=== PATIENT | male | born 1975 | race Caucasian/White ===

== ENCOUNTER 2019-09-17 01:11 | Day surgery (SDC) | payer OTHER, SELFPAY ==
[2019-07-20 14:09] VITALS: BMI 27.0
[2019-09-17] VITALS (9 sets, daily range): BP systolic 110–149; BP diastolic 59–92; PULSE 70–93; RESP 10–24; TEMP 36.2–36.7; O2SAT 93–100; BMI 28.1
--- NOTE | 2019-09-17 08:06 | WPDANESEPPF ---
Anes - Initial Pre Proc Eval Procedure: Operation Date: 09/17/19 10:00 Proposed Procedures p Bilateral Frontal Sinusotomy, Bilateral Ethmoidectomy, Bilateral Sphenoidotomy, Bilateral Maxillary Antrostomy, Bilateral Turbinate Reduction, - Keshav Kerr MD s Septoplasty - Keshav Kerr MD Date/Time: 09/17/19 08:06 Surgeon: Keshav Kerr MD Pre Op Diagnosis: Chronic sinusitis, deviated septum Patient Data Age: 43 Gender: M Height: 1.85 m Weight: 92.99 kg Allergies Allergy/AdvReac Type Severity Reaction Status Date / Time Penicillins Allergy Mild RASH/ITCHING Verified 09/17/19 08:28 CHILD Home Medications Medication Instructions Recorded Confirmed Type loratadine [Claritin] 10 mg PO DAILY PRN 07/20/19 09/17/19 History multivitamin 1 tablet PO DAILY 07/20/19 09/17/19 History Patient hx anesthesia problems: none Family hx anesthesia problems: none Anes - Eval Final PreProcedure Day of Procedure 09/17/19 08:06 Patient weight: overweight Heart: regular rate and rhythm Lungs: clear to auscultation and normal air movement Airway: Mallampati scale class II Neurological: alert and oriented Last oral intake: >/= 8 hours ASA classification: II Emergent: no Anesthetic plan: proceed Anesthesia type and monitoring: general ETT Informed Consent: The patient's anesthetic plan and its attendant risks and benefits were discussed with the patient/family/POA. Questions were solicited and answers provided to the satisfaction of the patient/family/POA.
[2019-09-17] MEDS: LACTATED RINGERS 1,000 ML 30 ML IV CONT ×3 (08:45→13:33)
[2019-09-17] MEDS: OXYMETAZOLINE HCL 0.05% NAS 15 ML BTL (*BKC) 1 SPRAY NASAL (08:59)
--- NOTE | 2019-09-17 09:00 | PM.IMHP ---
H&P: HPI History of Present Illness Chief complaint: Chronic sinusitis, deviated septum Narrative: Olegario Hernandez is a 43 year old male with chronic sinusitis and polyps Review of Systems Review of Systems: All systems reviewed & are unremarkable except as noted in HPI and below Meds Home Medications and Allergies Home Medications Medication Instructions Recorded Confirmed Type loratadine [Claritin] 10 mg PO DAILY PRN 07/20/19 09/17/19 History multivitamin 1 tablet PO DAILY 07/20/19 09/17/19 History Allergies Allergy/AdvReac Type Severity Reaction Status Date / Time Penicillins Allergy Mild RASH/ITCHING Verified 09/17/19 08:28 CHILD Vital Signs Vital Signs - 24 hr 09/17/19 08:45 Temperature 36.7 C Pulse Rate 73 Respiratory Rate 16 Blood Pressure 142/82 H Pulse Oximetry 100 Exam Narrative: Exam Narrative: Normal except for bilateral polyposis and disease throughout all of the paranasal sinuses Assessment and Plan Assessment and plan (1) Chronic pansinusitis: Code(s): J32.4 - Chronic pansinusitis Status: Acute Assessment and Plan: Olegario has chronic pansinusitis and polyposis and is here for comprehensive endoscopic sinus surgery, possible septoplasty/turbinoplasty. Refer to outpatient H&P for full details.
[2019-09-17] MEDS: LIDO 1%/EPINEPHRINE 1:100,000 20 ML VIAL 10 ML INFILTRATE (09:15)
--- NOTE | 2019-09-17 11:53 | PM.PROC ---
Procedure Note - Detailed Date of procedure: 09/17/19 Pre-op diagnosis: Chronic sinusitis, deviated septum Post-op diagnosis: same Procedure performed: Bilateral frontal sinusotomy, maxillary antrostomy, total ethmoidectomy, sphenoidotomy. Septoplasty, bilateral inferior turbinoplasty. Lavage of bilateral maxillary and sphenoid sinuses. Image guided surgery Description of procedure: On the date of procedure the patient was met in the preoperative area and risk and benefits of the procedure reviewed with the patient as documented in the H&P and they elected to proceed with surgery. Patient was brought back to the operating room by the anesthesia team and underwent general endotracheal anesthesia. Once an adequate plane of anesthesia was obtained a timeout was performed to assure the patient identification the patient here to be performed were correct. They were.The patient was then prepped and draped in the normal fashion for endoscopic sinus surgery. The diffusion image guidance system was calibrated and used for the entire case. Afrin-soaked pledgets were placed in the nasal cavities bilaterally. The entire case was performed under endoscopic visualization. Nasal endoscopy was performed at the beginning of the case. 1% lidocaine with 1:100,000 epinephrine was then injected into the root of the middle turbinate and lateral nasal wall. Attention was first directed towards the left side. The septum was deviated with a sharp spur to the left and a modified suyapa incision was made. Mucoperichondrial flap was elevated and using kraig elevator, the spur was fractured and lifted out and removed with alphonso forceps. With all deviated cartilage and bone removed, the mucosal flap was laid back down and septum was midline with greatly improved nasal airway. Next, the left middle turbinate was medialized and the osteomeatal complex was identified with a isha probe. Using a 90 degree backbiter, the uncinate process was reflected anteriorly and removed using a combination of sharp and powered dissection. The maxillary antrostomy was then created and widened by identifying the natural ostia and opening the sinus with straight kai-cut forceps, backbiter, and microdebrider. Polyp tissue encountered was removed with microdebrider. Continuing with the microdebrider, the anterior ethmoid bulla was opened. Careful dissection was carried out posteriorly, through the basal lamella and posterior ethmoid cells until the sphenoid rostrum was identified. A Rivera suction bluntly identified the sphenoid os and the opening was widened with microdebrider and mushroom punch to 5mm. Using an image guided curved suction as well as J-curette, the posterior most ethmoid cell was identified and the ethmoids were bluntly fractured and dissected from posterior to anterior along the base of the skull. The remaining bone fragments were removed with appropriate curved instruments and microdebrider.? Lastly, image guided frontal suction and sinus seeker were used to identify the frontal sinus and enter it.? A frontal balloon was used to assist with dilation of the frontal sinus. The frontal sinus was irrigated with saline which removed inspissated mucous.? There was extensive thick inspissated mucous throughought the maxillary sinus as well as the frontal sinus which required copious irrigation and suction to remove. Next, the right maxillary antrostomy, ethmoidectomy and sphenoidotomy were carried out in identical fashion with findings of gross polyp disease throughout. There was significant inspissated mucous in the right maxillary, sphenoid and frontal sinus that required repeated irrigation and suction to remove - very tenacious. A portion of specimen was removed for pathlogy to confirm it was just thick mucous. Polyp tissue taken down with microdebrider. Next, the right frontal sinus was identified and entered using image guided suction, seeker and frontal sinus angled biting instruments.? The balloon was
== END 2019-09-17 14:30 | disposition home or self-care (01) ==
PROVIDERS: Visit Provider Otolaryngology
PROC: (CPT 31276; principal; 2019-09-17 10:00)
PROC: (CPT 30520; 2019-09-17 10:00)
DX: J32.4 Chronic pansinusitis (principal); J34.2 Deviated nasal septum; J33.8 Other polyp of sinus; J34.89 Other specified disorders of nose and nasal sinuses
CPT/HCPCS: 31276; 31256; 31257; 30520; 30140; 61782; 88305; 88311; 88312; A9270; C1726; J0330; J1100; J1940; J2250; J2405; J2704; J3010; J7120